=== PATIENT | male | born 1970 | race Caucasian/White ===

== ENCOUNTER → 2018-12-13 | Outpatient (CLI) | payer BC ==
--- NOTE | 2018-12-13 13:18 | MRI ---
EXAM DESCRIPTION: Brain w/o Contrast: MRI. CLINICAL HISTORY: NARCOLEPSY COMPARISON: None. TECHNIQUE: Multiplanar, high-field MRI unit, multiple diffusion sequences, multiple conventional sequences without contrast. FINDINGS: Small confluent hyperintense FLAIR and T2-weighted signal in the periventricular white matter abutting the bilateral frontal origins of the lateral ventricles, more left than right. Also same signal in the bilateral occipital lobes abutting the posterior bodies of the lateral ventricles. Minimal extension into the centrum semiovale bilaterally.. No hemorrhage, no cerebral edema, no mass-effect. No diffusion restriction normal signal in the bilateral basal ganglia. Normal signal in the brainstem and cerebellar hemispheres. No hemorrhage, no parenchymal edema, no mass-effect. Concordance of the diffusion and non-diffusion sequences with no diffusion restriction. Cortical sulci, ventricles, and other CSF spaces, and the subdural spaces are minimally prominent for patient's age, but bilaterally symmetric. No effacement or displacement. No midline shift. No extra-axial hemorrhage. Normal flow signal void in the major vessels of the algaaciq [place], and the venous sinuses. IACs are symmetric bilaterally. No fluid in the bilateral mastoid air cells. No mass effect in the bilateral cerebellopontine angles. Pituitary gland occupies half of the sella. Base of the cerebellar tonsils is above the foramen magnum. Minimal chronic mucosal thickening in the ethmoid air cells and frontal sinuses. The bony calvarium is intact. IMPRESSION: 1. White matter changes in the frontal and occipital lobes abutting the lateral ventricles slightly more prominent in the left frontal lobe. This could represent early demyelinating disease, early ischemia or early cerebral microvascular disease. No diffusion restriction, no hemorrhage, and no mass effect. Subdural spaces, bilateral ventricles, and cortical sulci are minimally prominent for patient's age but this is symmetric. Consider neurologic consult. 2. No diffusion restriction with no evidence of significant acute or subacute ischemia or infarction. No intra-axial extra-axial hemorrhage or abnormal fluid collection. Minimal chronic paranasal sinusitis. Electronically signed by: Huan Sorto MD 12/13/2018 1:16 PM CDT
== END ==
LOC: MRI 10:12
PROVIDERS: ATTEND Nurse Practitioner Family
DX: G47.419 Narcolepsy without cataplexy (principal); R90.82 White matter disease, unspecified; J32.9 Chronic sinusitis, unspecified